=== PATIENT | male | born 1930 | race Caucasian/White ===

== ENCOUNTER 2017-04-23 21:23 | Inpatient (IN) | payer OTHER, MEDICARE ==
[2017-04-24 02:05] VITALS: BP 115/56; PULSE 84; RESP 18; TEMP 97.6; O2SAT 96
[2017-04-24] MEDS ORDERED: ACETAMINOPHEN 325 MG TAB PO PRN ×2 (02:45→11:15)
[2017-04-24] MEDS ORDERED: MAGNESIUM HYDROXIDE SUSP 30 ML CUP PO PRN ×2 (02:45→11:15)
[2017-04-24] MEDS ORDERED: ALUMINUM/MAGNESIUM/SIMETH 30 ML CUP PO PRN ×2 (02:45→11:15)
[2017-04-24 05:34] VITALS: BP 126/56; PULSE 74; RESP 18; TEMP 98.2; O2SAT 94
[2017-04-24] MEDS ORDERED: QUEtiapine FUMARATE 25 MG TAB PO SCH (09:00)
[2017-04-24] MEDS ORDERED: PILL SPLITTER OTHER PRN (10:45)
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
[2017-04-24] MEDS: LORazepam 2 MG/ML VIAL - age > 65 yrs IM PRN (12:31)
[2017-04-24] MEDS: QUEtiapine FUMARATE 25 MG TAB PO SCH ×2 (13:00→18:00)
[2017-04-24] MEDS ORDERED: POTA-243 PO (13:05)
[2017-04-24] MEDS ORDERED: LISI2.5T3 PO (13:05)
[2017-04-24] MEDS ORDERED: MEMA28CA PO (13:05)
[2017-04-24] MEDS ORDERED: MELO-1 PO (13:05)
[2017-04-24] MEDS ORDERED: DONE10TA7 PO (13:05)
[2017-04-24] MEDS ORDERED: HYDR-755 PO ×2 (13:05→13:06)
[2017-04-24] MEDS ORDERED: CARV3.12 PO (13:05)
[2017-04-24] MEDS ORDERED: CLOP75TA PO (13:05)
[2017-04-24] MEDS ORDERED: CYAN1000P IM (13:05)
[2017-04-24] MEDS ORDERED: QUET1TAB7 PO (13:05)
[2017-04-24] MEDS ORDERED: LORA-392 PO (13:05)
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
[2017-04-24 19:36] VITALS: BP 119/67; PULSE 67; RESP 18; TEMP 98.1; O2SAT 96
[2017-04-25 04:52] VITALS: BP 109/56; PULSE 75; RESP 17; TEMP 98; O2SAT 98
[2017-04-25] MEDS: QUEtiapine FUMARATE 25 MG TAB PO SCH ×3 (09:00→17:12)
[2017-04-25] MEDS: CARVEDILOL 3.125 MG TAB PO SCH ×2 (10:45→21:04)
[2017-04-25] MEDS: MEMANTINE HCL 10 MG TAB PO SCH ×2 (10:45→21:04)
[2017-04-25 11:15] LABS: ANION GAP 11 MEQ/L (5-15); BICARBONATE 24.9 MEQ/L (21.0-32.0); BLOOD UREA NITROGEN 19 MG/DL (7-18); CHLORIDE 106 MEQ/L (98-107); GLOMERULAR FILTRATION RATE 84 ML/MIN (>89); POTASSIUM 3.6 MEQ/L (3.5-5.1); SODIUM (NA) 142 MEQ/L (136-145)
[2017-04-25 11:17] LABS: AUTOMATED NEUTROPHIL # 4.6 TH/MM3 (1.8-7.7); BASOPHIL # 0.1 TH/MM3 (0-0.2); BASOPHIL % 0.9 % (0.0-2.0); EOSINOPHIL # 0.2 TH/MM3 (0-0.4); EOSINOPHIL % 3.5 % (0.0-4.0); HEMO FLAGS DIFF FINAL; LYMPH % 20.3 % (9.0-44.0); LYMPHOCYTE # 1.4 TH/MM3 (1.0-4.8); MEAN CORPUSCULAR HEMOGLOBIN 29.7 PG (27.0-34.0); MEAN CORPUSCULAR HGB CONC 33.7 % (32.0-36.0); MONO % 8.8 % (0.0-8.0); NEUT % 66.5 % (16.0-70.0); PLATELET COUNT 238 TH/MM3 (150-450); RED BLOOD COUNT 4.78 MIL/MM3 (4.50-5.90); RED CELL DISTRIBUTION WIDTH 14.3 % (11.6-17.2)
[2017-04-25 11:23] LABS: HDL CHOLESTEROL 56.1 MG/DL (40.0-60.0); LDL CHOLESTEROL 134 MG/DL (0-99)
[2017-04-25 11:58] LABS: HEMOGLOBIN A1a 0.8 %; HEMOGLOBIN A1b 1.4 %; HEMOGLOBIN Ao 86.6 %; HEMOGLOBIN P3 3.7 %
--- NOTE | 2017-04-25 15:54 | HHI.PYPN ---
Subjective Remarks Patient seen in day room with nurse Frances, chart review, patient calmer today less irritable and vigilant. Is replies are somewhat more decipherable. For now continue treatment Review of Systems Except as stated in HPI: all other systems reviewed are Neg Objective Alert: Yes [place]: Person Mood: Agitated, Calm Affect: Euthymic, Labile Memory Intact: Comment (very poor) Hallucinations: Other Delusions: No Delusion Type: Other (mildly vigilant) Suicidal: Ideation (denies) Homicidal: Ideation (denies) Insight/Judgment Very poor Labs Test 04/25/17 04/25/17 08:27 09:29 White Blood Count 7.0 TH/MM3 Red Blood Count 4.78 MIL/MM3 Hemoglobin 14.2 GM/DL Hematocrit 42.0 % Mean Corpuscular Volume 88.0 FL Mean Corpuscular Hemoglobin 29.7 PG Mean Corpuscular Hemoglobin 33.7 % Concent Red Cell Distribution Width 14.3 % Platelet Count 238 TH/MM3 Mean Platelet Volume 8.7 FL Neutrophils (%) (Auto) 66.5 % Lymphocytes (%) (Auto) 20.3 % Monocytes (%) (Auto) 8.8 % Eosinophils (%) (Auto) 3.5 % Basophils (%) (Auto) 0.9 % Neutrophils # (Auto) 4.6 TH/MM3 Lymphocytes # (Auto) 1.4 TH/MM3 Monocytes # (Auto) 0.6 TH/MM3 Eosinophils # (Auto) 0.2 TH/MM3 Basophils # (Auto) 0.1 TH/MM3 CBC Comment DIFF FINAL Differential Comment Sodium Level 142 MEQ/L Potassium Level 3.6 MEQ/L Chloride Level 106 MEQ/L Carbon Dioxide Level 24.9 MEQ/L Anion Gap 11 MEQ/L Blood Urea Nitrogen 19 MG/DL Creatinine 0.86 MG/DL Estimat Glomerular Filtration 84 ML/MIN Rate Random Glucose 115 MG/DL Hemoglobin A1c 4.9 % Calcium Level 9.2 MG/DL Triglycerides Level 95 MG/DL Cholesterol Level 209 MG/DL LDL Cholesterol 134 MG/DL HDL Cholesterol 56.1 MG/DL Cholesterol/HDL Ratio 3.72 RATIO Thyroid Stimulating Hormone 1.430 uIU/ML 3rd Gen Vitals/IOs Vital Signs Date Time Temp Pulse Resp B/P Pulse Ox O2 Delivery O2 Flow Rate FiO2 04/25/17 04:52 98.0 75 17 109/56 98 Intake and Output 04/24/17 04/24/17 04/25/17 08:00 16:00 00:00 Intake Total 1200 ml 360 ml Balance 1200 ml 360 ml Assessment & Plan Problem List: (1) DEMENTIA IN OTH DISEASES CLASSD ELSWHR W BEHAVIORAL DISTURB ICD Code: F02.81 (2) ALZHEIMER'S DISEASE WITH LATE ONSET ICD Code: G30.1 Assessment & Plan Estimated LOS: days patient continues demented confused though somewhat better behavioral control today Justification for Cont. Inpt. At this time patient will decompensate the placed on the lower level of care Discharge Planning To be determined Request HC Surrog/Guard Advoc?: Yes Alfonso Dixon MD Apr 25, 2017 15:54
[2017-04-25 18:00] VITALS: BP 146/56; PULSE 97; RESP 16; TEMP 98.1; O2SAT 97
[2017-04-25] MEDS: LORazepam 0.5 MG TAB age > 65 yrs PO PRN (21:04)
[2017-04-25] MEDS: DONEPEZIL HCL 5 MG TAB PO SCH (21:05)
[2017-04-26 06:00] VITALS: BP 145/88; PULSE 97; RESP 18; TEMP 97.1; O2SAT 100
[2017-04-26] MEDS: MELOXICAM 15 MG TAB PO SCH (09:00)
[2017-04-26] MEDS: MEMANTINE HCL 10 MG TAB PO SCH ×2 (09:00→20:52)
[2017-04-26] MEDS: QUEtiapine FUMARATE 25 MG TAB PO SCH ×3 (09:00→17:28)
[2017-04-26] MEDS: CARVEDILOL 3.125 MG TAB PO SCH ×2 (09:00→20:52)
[2017-04-26] MEDS: CLOPIDOGREL 75 MG TAB PO SCH (09:00)
--- NOTE | 2017-04-26 10:27 | HHI.PYPN ---
Subjective Remarks Patient seen in day room with nurse Frances, chart review, patient compliant medications. At this time patient sitting quietly in his [place]rena chair, he is calm with me continues diffusely confused though does answer to "Dr. beaver" he is been no significant behavior problem. Staff states it is a little bit irritable when being prepared for bed last night. We are set for meeting with patient's tomorrow morning at 10 AM. For now continue treatment Review of Systems Except as stated in HPI: all other systems reviewed are Neg Objective Alert: Yes [place]: Person Mood: Agitated, Calm Affect: Euthymic, Labile Memory Intact: Comment (very poor) Hallucinations: Other Delusions: No Delusion Type: Other (mildly vigilant) Suicidal: Ideation (denies) Homicidal: Ideation (denies) Insight/Judgment Very poor Vitals/IOs Vital Signs Date Time Temp Pulse Resp B/P Pulse Ox O2 Delivery O2 Flow Rate FiO2 04/26/17 06:00 97.1 97 18 145/88 100 Intake and Output 04/25/17 04/25/17 04/26/17 08:00 16:00 00:00 Intake Total 240 ml 480 ml 870 ml Balance 240 ml 480 ml 870 ml Assessment & Plan Problem List: (1) DEMENTIA IN OTH DISEASES CLASSD ELSWHR W BEHAVIORAL DISTURB ICD Code: F02.81 (2) ALZHEIMER'S DISEASE WITH LATE ONSET ICD Code: G30.1 Assessment & Plan Estimated LOS: days patient continues to monitor the confuse, though no significant behavioral problems at been noted. Compliant medications. We'll meet with patient's tomorrow morning at Justification for Cont. Inpt. At this time patient will decompensate in place to the lower level of care Discharge Planning To be determined Request HC Surrog/Guard Advoc?: Yes Alfonso Dixon MD Apr 26, 2017 10:27
--- NOTE | 2017-04-26 15:58 | HHI.PR ---
Addendum to Inpatient Note Additional Information Reviewed patient's chart. Patient stable from a medical standpoint. Will sign off. Please reconsult if needed. Discussed with Dr. Alexis Holman,Sri ARANDA Apr 26, 2017 15:58
[2017-04-26 17:29] VITALS: BP 142/81; PULSE 86; RESP 18; TEMP 97.6; O2SAT 98
[2017-04-26] MEDS: DONEPEZIL HCL 5 MG TAB PO SCH (20:52)
[2017-04-27 06:00] VITALS: BP 119/61; PULSE 77; RESP 16; TEMP 96.8; O2SAT 95
[2017-04-27] MEDS: CLOPIDOGREL 75 MG TAB PO SCH (09:40)
[2017-04-27] MEDS: MELOXICAM 15 MG TAB PO SCH (09:40)
[2017-04-27] MEDS: LISINOPRIL 5 MG TAB PO SCH (09:40)
[2017-04-27] MEDS: QUEtiapine FUMARATE 25 MG TAB PO SCH ×3 (09:40→18:00)
[2017-04-27] MEDS: MEMANTINE HCL 10 MG TAB PO SCH ×2 (09:40→21:54)
[2017-04-27] MEDS: CARVEDILOL 3.125 MG TAB PO SCH ×2 (09:40→21:54)
--- NOTE | 2017-04-27 11:17 | HHI.PYPN ---
Subjective Remarks Met with patient's , patient's daughter, patient's brother and his . Along with counselor Kelsey. We discussed diagnosis treatment, we discussed patient's behavior and prognosis with family counseling them as to their anticipations with their loved one. This took about 45 minutes. Family was them loud to see patient. Patient also seen by me prior to the family session. He remained calm though somewhat fragile and irritable in the day room. When addressed as "Dr. beaver" he seemed to recognize and appreciated. He continues markedly demented confused. Needing significant assistance with activities. He is compliant medication. I noticed that patient did not give a urine for UA yet. Will order UA with C/s if indicated today Review of Systems Except as stated in HPI: all other systems reviewed are Neg Objective Alert: Yes [place]: Person Mood: Agitated, Calm Affect: Euthymic, Labile Memory Intact: Comment (very poor) Hallucinations: Other Delusions: No Delusion Type: Other (mildly vigilant) Suicidal: Ideation (denies) Homicidal: Ideation (denies) Insight/Judgment Very poor Vitals/IOs Vital Signs Date Time Temp Pulse Resp B/P Pulse Ox O2 Delivery O2 Flow Rate FiO2 04/27/17 06:00 96.8 77 16 119/61 95 Intake and Output 04/26/17 04/26/17 04/26/17 07:59 15:59 23:59 Intake Total 240 ml 890 ml Balance 240 ml 890 ml Assessment & Plan Problem List: (1) DEMENTIA IN OTH DISEASES CLASSD ELSWHR W BEHAVIORAL DISTURB ICD Code: F02.81 (2) ALZHEIMER'S DISEASE WITH LATE ONSET ICD Code: G30.1 Assessment & Plan Estimated LOS: days had good meeting with patient's family, patient seen on unit, continues demented, compliant medications. Will check UA also Justification for Cont. Inpt. At this time patient will decompensate if placed in a lower level of care Discharge Planning To be determined Request HC Surrog/Guard Advoc?: Yes Alfonso Dixon MD Apr 27, 2017 11:17
[2017-04-27 13:11] LABS: BLOOD, URINE TRACE (NEG); COMMENT (UR) CULT NOT INDICATED; CULTURE IF INDICATED CULT NOT INDICATED; GLUCOSE,URINE NEG (NEG); KETONE, URINE NEG (NEG); MUCUS URINE FEW /lpf (OCC); NITRITE,URINE NEG (NEG); PH, URINE 5.5 (5.0-8.5); SQUAMOUS EPITHELIAL CELL URINE <1 /hpf (0-5); URINE COLOR LIGHT-YELLOW (YELLW/STRAW)
[2017-04-27] MEDS: DONEPEZIL HCL 5 MG TAB PO SCH (21:55)
[2017-04-28 06:00] VITALS: BP 181/84; PULSE 84; RESP 20; TEMP 97.1; O2SAT 97
[2017-04-28] MEDS: CARVEDILOL 3.125 MG TAB PO SCH ×2 (06:41→21:00)
[2017-04-28] MEDS: CLOPIDOGREL 75 MG TAB PO SCH (10:04)
[2017-04-28] MEDS: MELOXICAM 15 MG TAB PO SCH (10:05)
[2017-04-28] MEDS: QUEtiapine FUMARATE 25 MG TAB PO SCH ×3 (10:05→18:00)
[2017-04-28] MEDS: MEMANTINE HCL 10 MG TAB PO SCH ×2 (10:05→21:11)
[2017-04-28] MEDS: LISINOPRIL 5 MG TAB PO SCH (10:05)
--- NOTE | 2017-04-28 12:41 | HHI.PYPN ---
Subjective Remarks Patient was seen and case discussed with nursing. Patient is alert and oriented 1, grossly confused. Has difficulty understanding that I'm a psychiatrist. Patient is irritable slamming his hand mildly on his chair. Denies auditory visual hallucinations. Denies suicidal ideations intent or plan Objective Alert: Yes [place]: Person Mood: Agitated, Oppositional Affect: Labile Memory Intact: Comment (very poor) Hallucinations: Other Delusions: No Delusion Type: Other (mildly vigilant) Suicidal: Ideation (denies) Homicidal: Ideation (denies) Insight/Judgment Poor Vitals/IOs Vital Signs Date Time Temp Pulse Resp B/P Pulse Ox O2 Delivery O2 Flow Rate FiO2 04/27/17 20:47 04/27/17 06:00 96.8 77 16 95 Intake and Output 04/27/17 04/27/17 04/27/17 07:59 15:59 23:59 Intake Total 240 ml 960 ml Balance 240 ml 960 ml Assessment & Plan Problem List: (1) DEMENTIA IN OTH DISEASES CLASSD ELSWHR W BEHAVIORAL DISTURB ICD Code: F02.81 (2) ALZHEIMER'S DISEASE WITH LATE ONSET ICD Code: G30.1 Assessment & Plan Continue current treatment plan Justification for Cont. Inpt. Patient will decompensate in a less restrictive setting Request HC Surrog/Guard Advoc?: Yes Nayan Park DO Apr 28, 2017 12:41
[2017-04-28 20:00] VITALS: BP 100/56; PULSE 98; RESP 18; TEMP 97.5; O2SAT 96
[2017-04-28] MEDS: DONEPEZIL HCL 5 MG TAB PO SCH (21:11)
[2017-04-28] MEDS: LORazepam 0.5 MG TAB age > 65 yrs PO PRN (21:11)
[2017-04-29 05:54] VITALS: BP 97/56; PULSE 64; RESP 18; TEMP 97.5; O2SAT 95
[2017-04-29] MEDS: MELOXICAM 15 MG TAB PO SCH (08:58)
[2017-04-29] MEDS: CLOPIDOGREL 75 MG TAB PO SCH (08:59)
[2017-04-29] MEDS: CARVEDILOL 3.125 MG TAB PO SCH ×2 (08:59→20:11)
[2017-04-29] MEDS: LISINOPRIL 5 MG TAB PO SCH (08:59)
[2017-04-29] MEDS: QUEtiapine FUMARATE 25 MG TAB PO SCH ×3 (08:59→17:39)
[2017-04-29] MEDS: MEMANTINE HCL 10 MG TAB PO SCH ×2 (09:00→20:11)
[2017-04-29] MEDS: LORazepam 0.5 MG TAB age > 65 yrs PO PRN ×2 (09:11→20:11)
--- NOTE | 2017-04-29 11:01 | HHI.PYPN ---
Subjective Remarks Patient was seen and case discussed with nursing. Patient is less irritable and oppositional today. She is not hitting his hands in a stable during the interview. He is eating and sleeping well per nursing. Remains sarcastic saying "I feel sad for U." Denies suicidal ideation intent or plan. Objective Alert: Yes [place]: Person Mood: Oppositional Affect: Restricted Memory Intact: Comment (very poor) Hallucinations: Other Delusions: No Delusion Type: Other (mildly vigilant) Suicidal: Ideation (denies) Homicidal: Ideation (denies) Insight/Judgment Poor Vitals/IOs Vital Signs Date Time Temp Pulse Resp B/P Pulse Ox O2 Delivery O2 Flow Rate FiO2 04/29/17 05:54 97.5 64 18 97/56 95 Intake and Output 04/28/17 04/28/17 04/29/17 08:00 16:00 00:00 Intake Total 480 ml 360 ml 1320 ml Balance 480 ml 360 ml 1320 ml Assessment & Plan Problem List: (1) DEMENTIA IN OTH DISEASES CLASSD ELSWHR W BEHAVIORAL DISTURB ICD Code: F02.81 (2) ALZHEIMER'S DISEASE WITH LATE ONSET ICD Code: G30.1 Assessment & Plan Continue current treatment plan Justification for Cont. Inpt. Patient would decompensate in a less restrictive setting Request HC Surrog/Guard Advoc?: Yes Nayan Park DO Apr 29, 2017 11:01
[2017-04-29 17:55] VITALS: BP 129/68; PULSE 93; TEMP 97.3; O2SAT 96
[2017-04-29] MEDS: DONEPEZIL HCL 5 MG TAB PO SCH (20:11)
[2017-04-30 05:16] VITALS: BP 175/96; PULSE 89; RESP 17; TEMP 96.5; O2SAT 96
[2017-04-30] MEDS: QUEtiapine FUMARATE 25 MG TAB PO SCH ×3 (08:57→17:51)
[2017-04-30] MEDS: CARVEDILOL 3.125 MG TAB PO SCH ×2 (08:57→21:10)
[2017-04-30] MEDS: MELOXICAM 15 MG TAB PO SCH (08:57)
[2017-04-30] MEDS: LISINOPRIL 5 MG TAB PO SCH (08:58)
[2017-04-30] MEDS: CLOPIDOGREL 75 MG TAB PO SCH (08:58)
[2017-04-30] MEDS: MEMANTINE HCL 10 MG TAB PO SCH ×2 (08:58→21:10)
--- NOTE | 2017-04-30 11:38 | HHI.PYPN ---
Subjective Remarks Patient discussed with treatment team, patient seen on unit with nurse Monik and medical school students Raven and Lorna. Chart reviewed. Patient compliant medications. Patient continues diffusely confused with some increased affect related to it he is crying. 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 I feel he is aware of his significant cognitive losses. I will add Lexapro 10 mg daily to his regimen. Though he has been no behavioral problems on the unit Review of Systems Except as stated in HPI: all other systems reviewed are Neg Objective Alert: Yes [place]: Person Mood: Oppositional Affect: Restricted Memory Intact: Comment (very poor) Hallucinations: Other Delusions: No Delusion Type: Other (mildly vigilant) Suicidal: Ideation (denies) Homicidal: Ideation (denies) Insight/Judgment Very poor Vitals/IOs Vital Signs Date Time Temp Pulse Resp B/P Pulse Ox O2 Delivery O2 Flow Rate FiO2 04/30/17 05:16 96.5 89 17 175/96 96 Intake and Output 04/29/17 04/29/17 04/30/17 08:00 16:00 00:00 Intake Total 360 ml 1320 ml Balance 360 ml 1320 ml Assessment & Plan Problem List: (1) DEMENTIA IN OTH DISEASES CLASSD ELSWHR W BEHAVIORAL DISTURB ICD Code: F02.81 (2) ALZHEIMER'S DISEASE WITH LATE ONSET ICD Code: G30.1 Assessment & Plan Estimated LOS: days patient continues confused and demented, is now showing more dysphoria, crying, related to his loss of cognitive functioning Justification for Cont. Inpt. At this time patient may decompensate if not placed in an appropriate level of care Discharge Planning To be determined Request HC Surrog/Guard Advoc?: Yes Alfonso Dixon MD Apr 30, 2017 11:38
[2017-04-30] MEDS ORDERED: ESCITALOPRAM OXALATE 10 MG TAB PO SCH (11:45)
[2017-04-30] MEDS: ESCITALOPRAM OXALATE 10 MG TAB PO SCH (14:31)
--- NOTE | 2017-04-30 14:41 | PD.TTN ---
Present for Treatment Team Treatment Team Staff: Provider (Dr Dixon), Nurse (Cory), Psych Therapist (Kelsey ), Occupational Therapist (Lien) Patient Problems 1. Discharge planning 2. Medication compliance 3. Knowledge deficit 4. Lack of coping skills Progress Toward Goals Provider Input: will add medications wants discharge Sunday Nurse Input: med compliant likes to be around others at times impulsive Psych Therapist Input: called [facility] any time he did well seeing his Occupational Therapist Input: limited encouraged to attend groups keeps to himself Kelsey Cuellar [facility] Apr 30, 2017 14:41
[2017-04-30] MEDS: LORazepam 2 MG/ML VIAL - age > 65 yrs IM PRN (16:10)
[2017-04-30 17:56] VITALS: BP 162/68; PULSE 103; RESP 18; O2SAT 96
[2017-04-30] MEDS: DONEPEZIL HCL 5 MG TAB PO SCH (21:10)
[2017-04-30 21:15] VITALS: BP 162/68; PULSE 103; RESP 18; O2SAT 96
[2017-05-01 05:35] VITALS: BP 165/67; PULSE 76; RESP 16; TEMP 97.9
[2017-05-01] MEDS: MELOXICAM 15 MG TAB PO SCH (08:56)
[2017-05-01] MEDS: ESCITALOPRAM OXALATE 10 MG TAB PO SCH (08:56)
[2017-05-01] MEDS: CARVEDILOL 3.125 MG TAB PO SCH ×2 (08:56→21:00)
[2017-05-01] MEDS: QUEtiapine FUMARATE 25 MG TAB PO SCH ×3 (08:57→17:13)
[2017-05-01] MEDS: MEMANTINE HCL 10 MG TAB PO SCH ×2 (08:57→21:00)
[2017-05-01] MEDS: LISINOPRIL 5 MG TAB PO SCH (08:57)
[2017-05-01] MEDS: CLOPIDOGREL 75 MG TAB PO SCH (08:57)
[2017-05-01] MEDS: LORazepam 0.5 MG TAB age > 65 yrs PO PRN (09:04)
--- NOTE | 2017-05-01 15:11 | HHI.PYPN ---
Subjective Remarks Patient seen in day room with nurse Frances and medical student Lorna, chart review, patient compliant medications. Patient continues confused demented, does not remember me from one day to the next. Please been no significant behavioral problems. At times remains somewhat tearful saying that he is . I feel this refer is also to the changes in his life with the dementia. For now continue treatment no change Review of Systems Except as stated in HPI: all other systems reviewed are Neg Objective Alert: Yes [place]: Person Mood: Oppositional Affect: Restricted Memory Intact: Comment (very poor) Hallucinations: Other Delusions: No Delusion Type: Other (mildly vigilant) Suicidal: Ideation (denies) Homicidal: Ideation (denies) Insight/Judgment Very poor Vitals/IOs Vital Signs Date Time Temp Pulse Resp B/P Pulse Ox O2 Delivery O2 Flow Rate FiO2 05/01/17 05:35 97.9 76 16 165/67 04/30/17 21:15 96 Intake and Output 04/30/17 04/30/17 04/30/17 07:59 15:59 23:59 Intake Total 360 ml 1320 ml 630 ml Balance 360 ml 1320 ml 630 ml Assessment & Plan Problem List: (1) DEMENTIA IN OTH DISEASES CLASSD ELSWHR W BEHAVIORAL DISTURB ICD Code: F02.81 (2) ALZHEIMER'S DISEASE WITH LATE ONSET ICD Code: G30.1 Assessment & Plan Estimated LOS: days patient continues Dilantin confused though no significant paper problems, still remains a sadness with them. Is compliant with medications Justification for Cont. Inpt. At this time patient may decompensate if not placed in an appropriate level of care Discharge Planning To be determined Request HC Surrog/Guard Advoc?: Yes Alfonso Dixon MD May 01, 2017 15:11
[2017-05-01 15:56] VITALS: BP 130/59; PULSE 75; RESP 18; TEMP 97.7; O2SAT 96
[2017-05-01] MEDS: DONEPEZIL HCL 5 MG TAB PO SCH (21:00)
[2017-05-02 05:02] VITALS: BP 159/90; PULSE 87; RESP 16; TEMP 96.7; O2SAT 98
[2017-05-02] MEDS ORDERED: ESCI10TA PO (09:03)
[2017-05-02] MEDS ORDERED: PLAV75TA29 PO (09:03)
[2017-05-02] MEDS ORDERED: MELO-1 PO (09:03)
[2017-05-02] MEDS ORDERED: CARV3.125 PO (09:03)
[2017-05-02] MEDS ORDERED: NAME10TA PO (09:03)
[2017-05-02] MEDS ORDERED: QUET1TAB7 PO (09:03)
[2017-05-02] MEDS ORDERED: LISI2.5T3 PO (09:03)
[2017-05-02] MEDS ORDERED: DONE10TA7 PO (09:03)
[2017-05-02] MEDS: QUEtiapine FUMARATE 25 MG TAB PO SCH ×2 (09:06→12:24)
[2017-05-02] MEDS: MEMANTINE HCL 10 MG TAB PO SCH (09:06)
[2017-05-02] MEDS: MELOXICAM 15 MG TAB PO SCH (09:06)
[2017-05-02] MEDS: CLOPIDOGREL 75 MG TAB PO SCH (09:06)
[2017-05-02] MEDS: LISINOPRIL 5 MG TAB PO SCH (09:06)
[2017-05-02] MEDS: CARVEDILOL 3.125 MG TAB PO SCH (09:06)
[2017-05-02] MEDS: ESCITALOPRAM OXALATE 10 MG TAB PO SCH (09:06)
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
== END 2017-05-02 12:40 | DRG 57 ==
LOC: UNDOADMIN 21:35 → H250 21:35
PROVIDERS: ADMIT Psychiatry & Neurology Psychiatry; ATTEND Psychiatry & Neurology Psychiatry
DX: G30.1 Alzheimer's disease with late onset (principal); F02.81 Dementia in other diseases classified elsewhere, unspecified severity, with behavioral disturbance; E78.5 Hyperlipidemia, unspecified; I10 Essential (primary) hypertension; I25.10 Atherosclerotic heart disease of native coronary artery without angina pectoris; M10.9 Gout, unspecified; N40.0 Benign prostatic hyperplasia without lower urinary tract symptoms; Z95.5 Presence of coronary angioplasty implant and graft
CPT/HCPCS: 80048; 80061; 81001; 83036; 84443; 85025; J2060